=== PATIENT | female | born 1975 | race Caucasian/White ===

== ENCOUNTER 2022-11-18 10:52 | Outpatient (CLI) | payer OTHER, SELFPAY | END 2022-11-18 10:53 | disposition home or self-care (01) | LOC: MRI 10:56 | PROVIDERS: Visit Provider Radiology Radiation Oncology | DX: C34.32 Malignant neoplasm of lower lobe, left bronchus or lung (principal); C79.51 Secondary malignant neoplasm of bone | CPT/HCPCS: 72197; 73220; A9575 ==

== ENCOUNTER 2025-01-25 13:29 | Outpatient (RCR) | payer OTHER, SELFPAY | END 2025-07-24 23:59 | disposition home or self-care (01) | LOC: CCIC 13:29 | PROVIDERS: Visit Provider Clinical Nurse Specialist | DX: C34.32 Malignant neoplasm of lower lobe, left bronchus or lung (principal); C79.51 Secondary malignant neoplasm of bone | CPT/HCPCS: 99211 ==